=== PATIENT | male | born 1935 | race Caucasian/White ===

== ENCOUNTER 2017-10-30 16:05 | Emergency (ER) | payer MEDICARE ==
[2017-10-30 16:20] VITALS: BP 182/65
--- NOTE | 2017-10-30 16:33 | UC ---
Upper Extremity HPI - HPI Summary HPI Summary: left shoulder pain, after falling and hitting his shoulder on bed post - History of Current Complaint Chief Complaint: UCUpperExtremity Stated Complaint: SHOULDER INJURY Time Seen by Provider: 10/30/17 16:29 Hx Obtained From: Patient ?: No Onset/Duration: Sudden Onset, Lasting Days - 2 Pain Intensity: 0 Aggravating Factor(s): Movement - decrease ROM left shoulder Alleviating Factor(s): Nothing Related History: Dominant Hand Right - Allergies/Home Medications Allergies/Adverse Reactions: Allergies Allergy/AdvReac Type Severity Reaction Status Date / Time No Known Allergies Allergy Verified 10/30/17 16:20 Home Medications: Home Medications Amlodipine Besylate/Benazepril [Amlodipine Besylate/Benaz 5-40 mg-] 1 cap PO DAILY 10/30/17 [History Confirmed 10/30/17] Aspirin 81 mg CHEW TAB* [Aspirin Low Dose TAB*] 81 mg PO DAILY 10/30/17 [ History Confirmed 10/30/17] Atenolol/Chlorthalidone [Atenolol/Chlorthalidone 100-25 mg-] 1 tab PO DAILY [History Confirmed 10/30/17] Atorvastatin* [Lipitor*] 40 mg PO 1700 10/30/17 [History Confirmed 10/30/17] Glyburide/Metformin HCl [Glyburide/Metformin HCl 5-500 mg] 2 tab PO BID [History Confirmed 10/30/17] Levothyroxine TAB* [Synthroid TAB*] 125 mcg PO 0800 10/30/17 [History Confirmed 10/30/17] Losartan Potassium 100 mg PO DAILY 10/30/17 [History Confirmed 10/30/17] Omeprazole CAP* [Prilosec CAP* 20 MG] 20 mg PO DAILY 10/30/17 [History Confirmed 10/30/17] PMH/Surg Hx/FS Hx/Imm Hx Previously Healthy: No Endocrine History: Diabetes, Hypothyroidism, Dyslipidemia Cardiovascular History: Hypertension - Surgical History Surgical History: Yes Surgery Procedure, Year, and Place: CABG - Family History Known Family History: Positive: None - Social History Occupation: Retired Lives: With Family Alcohol Use: Weekly Substance Use Type: None Smoking Status (MU): Former Smoker Review of Systems Constitutional: Negative Skin: Negative Eyes: Negative ENT: Negative Respiratory: Negative Cardiovascular: Negative Gastrointestinal: Negative Genitourinary: Negative Motor: Negative Neurovascular: Negative Musculoskeletal: Decreased ROM - left shoulder Neurological: Negative Psychological: Negative Is Patient Immunocompromised?: No All Other Systems Reviewed And Are Negative: Yes Physical Exam Triage Information Reviewed: Yes Appearance: Well-Appearing, No Pain Distress, Well-Nourished Vital Signs: Initial Vital Signs Temp 97.6 F 10/30/17 16:14 Pulse 69 10/30/17 16:14 Resp 16 10/30/17 16:14 BP 182/65 10/30/17 16:14 Pulse Ox 99 10/30/17 16:14 Vital Signs Reviewed: Yes Eye Exam: Normal Eyes: Positive: Conjunctiva Clear ENT Exam: Normal ENT: Positive: Normal ENT inspection, Hearing grossly normal. Negative: Nasal congestion, Trismus, Muffled voice, Hoarse voice, Dental tenderness, Sinus tenderness Dental Exam: Normal Neck exam: Normal Neck: Positive: Supple, Nontender Respiratory Exam: Normal Respiratory: Positive: Chest non-tender, No respiratory distress, No accessory muscle use Cardiovascular Exam: Normal Cardiovascular: Positive: RRR, Pulses Normal, Brisk Capillary Refill Musculoskeletal Exam: Normal Musculoskeletal: Positive: No Edema, ROM Limited @ - left shoulder Neurological Exam: Normal Neurological: Positive: Alert, Muscle Tone Normal Psychological Exam: Normal Psychological: Positive: Normal Response To Family, Age Appropriate Behavior Skin Exam: Normal Upper Extremity Course/Dx - Course Course Of Treatment: follow with orthopedic MD, ibuprofen, follow bllod pressure with pcp - Differential Dx/Diagnosis Provider Diagnoses: calcific tendonitis left shoulder Discharge - Sign-Out/Discharge Documenting (check all that apply): Patient Departure - Discharge Plan Condition: Stable Disposition: HOME Patient Education Materials: Ibuprofen (By mouth), Calcific Tendinitis (ED), Hypertension (ED) Referrals: Manisha De Leon MD [Medical Doctor] - 3 Days Omer Ortiz MD [Primary Care Provider] - 1 Week - Billing Disposition and Condition Condition: STABLE Disposition: Home
--- NOTE | 2017-10-30 17:09 | RAD ---
Indication: Pain post fall onto LEFT shoulder. Decreased range of motion. Comparison: No relevant prior exams available on the [facility] PACS for comparison. Technique: AP and lateral views LEFT humerus. Report: Negative for humerus fracture or articular malalignment. Calcific tendinopathy of the rotator cuff at the greater tuberosity insertion. Reactive sclerosis and cystic change at the greater tuberosity consistent with chronic rotator cuff pathology. Moderate acromioclavicular and mild glenohumeral joint osteoarthritis. Unremarkable soft tissue contours. IMPRESSION: #. No fracture of the LEFT humerus evident. #. Stigmata of chronic rotator cuff pathology including calcific tendinopathy. #. Acromioclavicular and glenohumeral joint osteoarthritis.
== END 2017-10-30 17:53 | disposition home or self-care (01) ==
LOC: UCEAST 16:05
DX: M75.32 Calcific tendinitis of left shoulder (principal); M19.012 Primary osteoarthritis, left shoulder; E11.9 Type 2 diabetes mellitus without complications; Z79.84 Long term (current) use of oral hypoglycemic drugs; E03.9 Hypothyroidism, unspecified; E78.5 Hyperlipidemia, unspecified; I10 Essential (primary) hypertension; Z95.1 Presence of aortocoronary bypass graft; Z87.891 Personal history of nicotine dependence
CPT/HCPCS: 99201; G0463

== ENCOUNTER 2017-11-09 13:24 | Emergency (ER) | payer MEDICARE ==
--- OUTSIDE RECORDS SUMMARY | 2017-11-09 13:33 | XMS REPORT ---
:1935 External Reference #:[id number] Author Organization [employer] Address [address] [place] [address] [place] [address] Phone [phone] Care Team Providers Name Role Phone Omer Ortiz MD Primary Care Physician Unavailable Payers Type Date Identification Numbers Payment Provider Subscriber Medicare Primary Policy Number: [id number] Medicare [employer] Name: 1 1 [address] PayID: [id number] [place] [address] Medigap Part B Policy Number: [id number] [facility] [employer] PayID: [id number] [address] [place] [address] Problems Date Description Provider Status Onset: 07/25/2013 Coronary arteriosclerosis Johnson Toro M.D., 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 [employer] Cigarette Use Former Cigarette Smoker ETOH Use Denies alcohol use Smoking Patient is a former smoker quit smoking 45 years ago Recreational Drug Use Denies Drug Use Daily Caffeine Consumes on average 1 cup of regular coffee per day Exercise Type/Frequency Exercises regularly Allergies, Adverse Reactions, Alerts Date Description Reaction Status Severity Comments 07/25/2013 Penicillin hives active Medications Medication Date Status Form Strength Qnty SIG Indications Ordering Provider Glyburide-Metfo / Active Tablets 5-500mg 2 tab po Unknown rmin 0000 b.i.d Am/PM Atenolol-Chlort / Active Tablets 100-25mg 1 tab po Unknown halidone 0000 daily Childrens 00/ Active Chewtabs 81mg 1 tab po Unknown Aspirin Low 0000 at night Strength Vitamin B12 / Active Tablets 100mcg 90tabs Take by Unknown 0000 mouth as directed , 2 times weekly Omeprazole / Active Capsules 20mg 90caps 1 by mouth Unknown 0000 DR every day Levothyroxine / Active Tablets 125mcg 30tabs 1 by mouth Unknown Sodium 0000 every day Meclizine HCL / Active Tablets 12.5mg 30tabs as needed Unknown 0000 Atorvastatin / Active Tablets 40mg 1 by mouth Unknown Calcium 0000 every day Losartan / Active Tablets 100mg 1 by mouth Unknown Potassium 0000 every day Amlodipine / Active Capsules 5-40mg Take 1 Unknown Besylate/Benaze 0000 Capsule By pril Mouth Hydrochloride Every Day Simvastatin / Hx Tablets 80mg 1/2 by Unknown 0000 - mouth 2015 night at bedtime Diovan / Hx Tablets 320mg 30tabs 1 by mouth Unknown 0000 - every day 2014 Benazepril HCL / Hx Tablets 20mg 30tabs by mouth Unknown 0000 - every day 2014 Amlodipine / Hx Capsules 5-40mg 1 by mouth Unknown Besylate/Benaze 0000 - every day pril HCL 2015 Vital Signs Date Vital Result Comment 11/04/2017 Height 67 inches 5'7" Weight 175.00 lb BP Systolic 130 mmHg BP Diastolic 70 mmHg Respiratory Rate 20 /min Body Temperature 97.6 F Pain Level 7 BMI (Body Mass Index) 27.4 kg/m2 09/29/2016 Height 65.5 inches 5'5.50" Weight 191.00 lb with shoes Heart Rate 62 /min BP Systolic Sitting 200 mmHg Rue reg cuff BP Diastolic Sitting 84 mmHg Rue reg cuff BP Systolic Standing 194 mmHg Rue reg cuff BP Diastolic Standing 86 mmHg Rue reg cuff Respiratory Rate 17 /min BMI (Body Mass Index) 31.3 kg/m2 Ejection Fraction 59% 07/24/2014-echo 09/04/2015 Height 65.5 inches 5'5.50" Weight 191.00 lb Heart Rate 64 /min BP Systolic Sitting 164 mmHg LA large cuff BP Diastolic Sitting 82 mmHg LA large cuff BP Systolic Standing 164 mmHg LA BP Diastolic Standing 80 mmHg LA Respiratory Rate 16 /min BMI (Body Mass Index) 31.3 kg/m2 Ejection Fraction 59% 08/03/14 07/31/2014 Height 66 inches 5'6" Weight 193.00 lb w/o shoes Heart Rate 66 /min reg BP Systolic Sitting 132 mmHg LA, reg cuff BP Diastolic Sitting 70 mmHg LA, reg cuff BP Systolic Standing 138 mmHg LA BP Diastolic Standing 80 mmHg LA Respiratory Rate 18 /min BMI (Body Mass Index) 31.1 kg/m2 07/25/2013 Height 66 inches 5'6" Weight 206.00 lb with shoes Heart Rate 60 /min BP Systolic Sitting 150 mmHg Ra reg cuff BP Diastolic Sitting 90 mmHg Ra reg cuff BP Systolic Standing 158 mmHg Ra reg cuff BP Diastolic Standing 90 mmHg Ra reg cuff Respiratory Rate 16 /min BMI (Body Mass Index) 33.2 kg/m2 Results Description No Information Procedures Date CPT Code Description Status 09/29/2016 91957 EKG Tracing & Interpretation Completed 09/04/2015 13979 EKG Tracing & Interpretation Completed 07/31/2014 09051 EKG Tracing & Interpretation Completed 07/24/2014 24033 ECHO Transthoracic, Real-Time 2D With Doppler And Color Completed Flow 07/25/2013 03158 EKG Tracing & Interpretation Completed 07/20/2013 55534 ECHO Transthoracic, Real-Time 2D With Doppler And Color Completed Flow 07/01/2012 32850 EKG Tracing & Interpretation Completed 06/28/2012 56775 ECHO Transthoracic, Real-Time 2D With Doppler And Color Completed Flow Encounters Type Date Location Provider CPT E/M Dx Office Visit 09/29/2016 [facility] Johnson Toro, [address] I25.719 1:00p Rosemary Wellington, [facility] Office Visit 09/04/2015 1:30p [facility] Johnson Toro, [address]241 I25.10 Rosemary Wellington, ARSH, [place] Office Visit 07/31/2014 12:00p [facility] Johnson Toro, 26643 [phone] Rosemary Wellington, ARSH, [place] Office Visit 07/25/2013 11:30a [facility] Johnson Toro, 64951 [phone] Rosemary Wellington, [facility] 07/01/2012 11:30a [facility] Johnson Toro, 46818 414.9 Rosemary Wellington, [facility], [facility] Plan of Care Future Appointment(s):11/25/2017 3:30 pm - Rao Fernando M.D. at [facility].11/04/2017 - Rao Fernando M.D.[id number] Strain of musc/tend the rotator cuff of left shoulder, initFollow up:Follow up: 3-5 weeks OK to use the sling some especially if the shoulder is more sore OK to use ice and heat OK to use some advil. The tylenol is a little safer. Light use of the left hand and some shoulder movements are OK No casting with the left arm
[2017-11-09 13:35] VITALS: BP 185/61
--- NOTE | 2017-11-09 13:47 | UC ---
Head Injury HPI - HPI Summary HPI Summary: The patient is an 82 y/o male presenting to the [facility] for a head injury s/p a fall at 10:30. [place] and hit his head on the sidewalk. Associated: swelling and bruising to R forehead. Denies vision changes, syncope, changes in speech, nausea, light sensitivity, jaw pain , neck pain, wrist and ankle pain. Pt denies blood thinners. This is [place], documenting for attending, Dr. Noe Holder MD. - History Of Current Complaint Chief Complaint: UCHeadInjury Stated Complaint: HEAD INJURY Time Seen by Provider: 11/09/17 13:32 Hx Obtained From: Patient, Family/Lubricator Granulator Onset/Duration: Sudden Onset, Lasting Hours - 4 hours, Still Present Severity Initially: Mild Pain Intensity: 0 Pain Scale Used: 0-10 Numeric Aggravating Factor(s): Nothing Associated Signs And Symptoms: Positive: Other - Pos: swelling and bruising to forehead. Neg: vision changes, syncope, changes in speech, nausea, light sensitivity, jaw pain, neck pain, wrist and ankle pain. 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 Other Cardiovascular History: HTN - Surgical History Surgical History: Yes Surgery Procedure, Year, and Place: CABG - Family History Known Family History: Positive: Cardiac Disease - Social History Occupation: Employed Part-time Lives: With Family Alcohol Use: Weekly Substance Use Type: None Smoking Status (MU): Former Smoker Review of Systems Skin: Bruising - R forehead, Other - hematoma R forehead Eyes: Other - Neg: vision changes Gastrointestinal: Other - Neg: Nausea Musculoskeletal: Other: - Neg: Jaw, neck and ankle pain Neurological: Other - neg: syncope/LOC, speech changes All Other Systems Reviewed And Are Negative: Yes Physical Exam - Summary Physical Exam Summary: General: well-appearing, no pain distress Skin: warm, color reflects adequate perfusion, dry Head: Swelling of right lateral superior orbit,Partial thickness skin injury, No active bleeding Eyes: EOMI, MATT ENT: normal Neck: supple, nontender Respiratory: CTA, breath sounds present Cardiovascular: RRR Abdomen: soft, nontender Bowel: present Musculoskeletal: normal, strength/ROM intact Neurological: sensory/motor intact, A&O x3 Psychological: affect/mood appropriate Triage Information Reviewed: Yes Vital Signs: Initial Vital Signs Temp 98.0 F 11/09/17 13:32 Pulse 68 11/09/17 13:32 Resp 18 11/09/17 13:32 BP 185/61 11/09/17 13:32 Pulse Ox 100 11/09/17 13:32 Vital Signs Reviewed: Yes Diagnostics - Laboratory Diagnostic Studies Completed/Ordered: BRAIN CT, as read by radiologist, IMPRESSION: NO ACUTE INTRACRANIAL PATHOLOGY. DIFFUSE INVOLUTIONAL CHANGE WITH MILD CHRONIC SMALL VESSEL ISCHEMIC CHANGES. [facility] provider has reviewed this report and agrees. Head Injury Course/Dx - Course Course Of Treatment: BP noted and advised to follow up with PCP. Medications reviewed. Allergies noted. DISCUSSED RESULTS WITH THE PATIENT. F/U PMD IF NOT IMPROVED; RECHECK SOONER IF WORSE. - Differential Dx/Diagnosis Provider Diagnoses: HEAD INJURY. FACIAL ABRASION/CONTUSION Discharge - Sign-Out/Discharge Documenting (check all that apply): Patient Departure - Discharge Plan Condition: Stable Disposition: HOME Patient Education Materials: Head Injury (ED), Abrasion (ED) Referrals: Omer Ortiz MD [Primary Care Provider] - Additional Instructions: FOLLOW UP WITH YOUR DOCTOR IF NOT COMPLETELY IMPROVED. GET RECHECKED FOR ANY WORSENING OF YOUR CONDITION OR QUESTIONS OR CONCERNS. Your blood pressure was elevated during todays visit; please follow up with your primary care provider within a week for further evaluation. - Billing Disposition and Condition Condition: STABLE Disposition: Home
--- NOTE | 2017-11-09 14:25 | RAD ---
HISTORY: FELL, STRUCK RT ORBIT COMPARISONS: November 23, 2011 TECHNIQUE: Multiple contiguous axial CT scans were obtained of the head without intravenous contrast. FINDINGS: HEMORRHAGE/INFARCT: There is no hemorrhage or acute infarct. MASSES/SHIFT: There is no mass or shift. 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 This is stable. SULCI AND VENTRICLES: There is diffuse and proportional enlargement of the sulci and ventricles. CEREBRUM: There is mild patchy hypoattenuation of the periventricular matter. BRAINSTEM: There are no focal parenchymal abnormalities. CEREBELLUM: There are no focal parenchymal abnormalities. VESSELS: The vessels are grossly normal. PARANASAL SINUSES: The paranasal sinuses are clear. ORBITS: The orbits are unremarkable. BONES AND SOFT TISSUE: No bone or soft tissue abnormalities are noted. OTHER: None IMPRESSION: NO ACUTE INTRACRANIAL PATHOLOGY. DIFFUSE INVOLUTIONAL CHANGE WITH MILD CHRONIC SMALL VESSEL ISCHEMIC CHANGES.
== END 2017-11-09 14:55 | disposition home or self-care (01) ==
LOC: UCEAST 13:24
DX: S09.90XA Unspecified injury of head, initial encounter (principal); S00.81XA Abrasion of other part of head, initial encounter; W01.198A Fall on same level from slipping, tripping and stumbling with subsequent striking against other object, initial encounter; Y93.01 Activity, walking, marching and hiking; Y92.480 Sidewalk as the place of occurrence of the external cause; Z88.0 Allergy status to penicillin; I10 Essential (primary) hypertension; Z87.891 Personal history of nicotine dependence
CPT/HCPCS: 70450; 99212; G0463

== ENCOUNTER 2022-02-06 18:05 | Inpatient (IN) ==
[2022-02-06] MEDS ORDERED: Lactated Ringers 1000 ml BAG 1,000 ML IV ONE (18:17)
[2022-02-06 18:38] LABS: ABS Neutrophils 4.8 10^3/ul (1.5-7.7); Eosinophil % 0.2 %; Hematocrit 32 % (42-52); Hemoglobin 10.7 g/dL (14.0-18.0); Lymphocyte % 14.7 %; Mean Corpuscular HGB Conc 33 g/dL (31-36); Mean Corpuscular Hemoglobin 31 pg (27-31); Mean Corpuscular Volume 93 fL (80-94); Mean Platelet Volume 8.5 fL (7.4-10.4); Platelet Count 166 10^3/uL (150-450); Red Blood Count 3.48 10^6 /uL (4.18-5.48); Red Cell Distribution Width 14 % (10-15); White Blood Count 6.8 10^3/uL (3.5-10.8)
[2022-02-06 18:40] LABS: Venous Bicarbonate HCO3 24.7 mmol/L (24-28)
[2022-02-06 18:55] LABS: Urine Appearance Cloudy; Urine Bilirubin Negative (Negative); Urine Blood 2+ (Negative); Urine Color Amber; Urine Glucose Negative (Negative); Urine Ketones Negative (Negative); Urine Nitrite Negative (Negative); Urine Protein 3+(>=500 mg/dL) (Negative); Urine Specific Gravity 1.018 (1.002-1.030); Urine Urobilinogen Negative (Negative)
[2022-02-06 18:57] LABS: INR 1.06 (0.89-1.11)
[2022-02-06 18:58] LABS: Urine Bacteria 1+ (Absent); Urine Red Blood Cell 3+(>10/hpf) (Absent); Urine Squamous Epithelial Cell Present (Absent); Urine White Blood Cell Trace(0-5/hpf) (Absent)
[2022-02-06 19:05] LABS: High Sens Troponin Baseline 13 pg/mL (<20)
[2022-02-06 19:12] LABS: ALT 21 U/L (7-52); AST 40 U/L (13-39); Albumin 3.4 g/dL (3.2-5.2); Albumin/Globulin Ratio 1.2 (1-3); Alcohol, S < 13 mg/dL (<13); Alkaline Phosphatase 51 U/L (35-149); Anion Gap 9 mmol/L (2-11); Blood Urea Nitrogen 27 mg/dL (6-24); CO2 Carbon Dioxide 26 mmol/L (22-32); Calcium 7.9 mg/dL (8.6-10.3); Chloride 100 mmol/L (101-111); Globulin 2.8 g/dL (2-4); Glucose 196 mg/dL (70-100); Magnesium 1.5 mg/dL (1.9-2.7); Potassium 3.8 mmol/L (3.5-5.0); Sodium 135 mmol/L (135-145); Total Protein 6.2 g/dL (6.4-8.9); eGFR CKD-EPI 45.2 (>60)
[2022-02-06 19:22] LABS: TSH Ultra Thyroid Stim Horm 3.71 mcIU/mL (0.34-5.60)
[2022-02-06 19:29] LABS: Urine Benzodiazepine Screen None Detected (None Detect); Urine Cannabinoids Screen None Detected (None Detect); Urine Opiates Screen None Detected (None Detect)
[2022-02-06 20:46] LABS: Creatine Kinase 1728 U/L (10-223)
[2022-02-06] MEDS ORDERED: Azithromycin 500 mg/250 ml NS 500 MG/250 ML BAG IVPB ONE (21:01)
[2022-02-06] MEDS ORDERED: cefTRIAXone 1 gm/50 mL D5W 1 GM/50 ML BAG IV ONE (21:01)
[2022-02-06] MEDS ORDERED: Dexamethasone IV 4 MG/ML VIAL 1 ml VIAL IV SLOW PU ONE (21:02)
[2022-02-06 21:09] LABS: High Sensitivity Troponin 1 Hr 14 pg/mL (<20)
[2022-02-06] MEDS ORDERED: Magnesium Sulf 4 GM/100 ML IV 4,000 MG/100 ML BAG IVPB ONE (22:11)
[2022-02-06] MEDS ORDERED: Lactated Ringers 1000 ml BAG 1,000 ML IV SCH (23:45)
[2022-02-07] MEDS ORDERED: Lactated Ringers 1000 ml BAG 1,000 ML IV SCH (04:04)
[2022-02-07 05:44] LABS: Hematocrit 32 % (42-52); Hemoglobin 10.4 g/dL (14.0-18.0); Mean Corpuscular HGB Conc 33 g/dL (31-36); Mean Corpuscular Hemoglobin 31 pg (27-31); Mean Corpuscular Volume 93 fL (80-94); Mean Platelet Volume 8.4 fL (7.4-10.4); Platelet Count 157 10^3/uL (150-450); Red Blood Count 3.39 10^6 /uL (4.18-5.48); Red Cell Distribution Width 14 % (10-15); White Blood Count 4.8 10^3/uL (3.5-10.8)
[2022-02-07] MEDS: Enoxaparin 40 MG/0.4 ML SYR SUBCUT SCH (05:46)
[2022-02-07] MEDS ORDERED: Dextrose 50% Syringe 50 ml 25 GM/50 ML SYRINGE IV PUSH PRN (05:56)
[2022-02-07] MEDS ORDERED: Enoxaparin 30 MG/0.3 ML SYR SUBCUT SCH (06:00)
[2022-02-07 07:03] LABS: Albumin 3.1 g/dL (3.2-5.2); Magnesium 2.5 mg/dL (1.9-2.7)
[2022-02-07 07:09] LABS: ALT 19 U/L (7-52); AST 41 U/L (13-39); Albumin/Globulin Ratio 1.2 (1-3); Alkaline Phosphatase 52 U/L (35-149); Anion Gap 10 mmol/L (2-11); Blood Urea Nitrogen 29 mg/dL (6-24); CO2 Carbon Dioxide 23 mmol/L (22-32); Calcium 7.4 mg/dL (8.6-10.3); Chloride 103 mmol/L (101-111); Globulin 2.6 g/dL (2-4); Glucose 247 mg/dL (70-100); Sodium 136 mmol/L (135-145); Total Protein 5.7 g/dL (6.4-8.9); eGFR CKD-EPI 54.9 (>60)
[2022-02-07] MEDS ORDERED: Remdesivir 100 mg Vial 200 MG in NS 0.9% 250 ml 210 ML IV ONE (08:00)
[2022-02-07] MEDS ORDERED: AMLODIPINE BENAZEPRIL PO SCH (09:00)
[2022-02-07 09:48] LABS: Creatine Kinase 1639 U/L (10-223); Total Iron Binding Capacity 225 mcg/dL (250-450); Transferrin 161 mg/dL (203-362)
[2022-02-07 09:52] LABS: % Iron Saturation 9 % (15-55); Iron < 20 ug/dL (50-212); Unsaturated Iron Binding 205 ug/dL
[2022-02-07 10:02] LABS: Ferritin 78.8 ng/mL (24-336)
[2022-02-07 10:23] LABS: C Reactive Protein 21.77 mg/L (<8.01)
[2022-02-07] MEDS ORDERED: Haloperidol 5 mg/ml SDV IV/IM 5 MG/ML AMP IV SLOW PU ONE ×2 (11:55→12:39)
[2022-02-07] MEDS ORDERED: LORazepam 2 mg VIAL 1 ml IV PUSH ONE ×2 (13:56→18:05)
[2022-02-07] MEDS ORDERED: Lorazepam PYXIS KEY PRN (13:56)
[2022-02-07] MEDS ORDERED: LORazepam 2 mg VIAL 1 ml ONE (20:04)
[2022-02-07] MEDS ORDERED: cefTRIAXone 1 gm/50 mL D5W 1 GM/50 ML BAG IV SCH (21:00)
[2022-02-07] MEDS ORDERED: Azithromycin 500 mg/250 ml NS 500 MG/250 ML BAG IVPB SCH (22:00)
[2022-02-08] MEDS ORDERED: Lorazepam PYXIS KEY PRN ×2 (04:36→14:11)
[2022-02-08] MEDS ORDERED: LORazepam 2 mg VIAL 1 ml IV PUSH ONE ×2 (04:36→14:11)
[2022-02-08] MEDS: Enoxaparin 40 MG/0.4 ML SYR SUBCUT SCH (06:46)
[2022-02-08 08:39] LABS: ABS Lymphocytes 1.9 10^3/ul (1.0-4.8); ABS Monocytes 0.9 10^3/ul (0-0.8); ABS Neutrophils 6.6 10^3/ul (1.5-7.7); Hematocrit 35 % (42-52); Hemoglobin 11.6 g/dL (14.0-18.0); Lymphocyte % 20.1 %; Mean Corpuscular HGB Conc 34 g/dL (31-36); Mean Corpuscular Hemoglobin 31 pg (27-31); Mean Corpuscular Volume 92 fL (80-94); Mean Platelet Volume 8.5 fL (7.4-10.4); Platelet Count 183 10^3/uL (150-450); Red Blood Count 3.77 10^6 /uL (4.18-5.48); Red Cell Distribution Width 14 % (10-15); White Blood Count 9.3 10^3/uL (3.5-10.8)
[2022-02-08 08:51] LABS: INR 1.02 (0.89-1.11)
[2022-02-08 09:28] LABS: Albumin 3.4 g/dL (3.2-5.2); Albumin/Globulin Ratio 1.2 (1-3); Calcium 8.1 mg/dL (8.6-10.3); Globulin 2.8 g/dL (2-4); Magnesium 2.2 mg/dL (1.9-2.7); Potassium 3.5 mmol/L (3.5-5.0); Total Bilirubin 0.4 mg/dL (0.2-1.0); Total Protein 6.2 g/dL (6.4-8.9); eGFR CKD-EPI 41.8 (>60)
[2022-02-08] MEDS: Remdesivir 100 mg Vial 100 MG in NS 0.9% 250 ml 230 ML IV SCH (09:44)
[2022-02-08] MEDS ORDERED: LORazepam 2 mg VIAL 1 ml ONE (14:17)
[2022-02-08] MEDS ORDERED: Haloperidol 5 mg/ml SDV IV/IM 5 MG/ML AMP IM ONE (15:05)
[2022-02-08] MEDS ORDERED: Insulin GLARGINE 100 un/ml 10 ml VIAL SUBCUT SCH (21:00)
[2022-02-09] MEDS: Enoxaparin 40 MG/0.4 ML SYR SUBCUT SCH (05:01)
[2022-02-09 10:09] LABS: Hematocrit 37 % (42-52); Hemoglobin 12.3 g/dL (14.0-18.0); Mean Corpuscular HGB Conc 34 g/dL (31-36); Mean Corpuscular Hemoglobin 30 pg (27-31); Mean Corpuscular Volume 91 fL (80-94); Mean Platelet Volume 8.7 fL (7.4-10.4); Platelet Count 252 10^3/uL (150-450); Red Blood Count 4.05 10^6 /uL (4.18-5.48); Red Cell Distribution Width 14 % (10-15); White Blood Count 10.7 10^3/uL (3.5-10.8)
[2022-02-09 10:14] LABS: INR 1.07 (0.89-1.11)
[2022-02-09] MEDS: Remdesivir 100 mg Vial 100 MG in NS 0.9% 250 ml 230 ML IV SCH (10:22)
[2022-02-09 10:25] LABS: ALT 29 U/L (7-52); AST 48 U/L (13-39); Albumin 3.6 g/dL (3.2-5.2); Albumin/Globulin Ratio 1.2 (1-3); Alkaline Phosphatase 56 U/L (35-149); Anion Gap 15 mmol/L (2-11); Blood Urea Nitrogen 45 mg/dL (6-24); CO2 Carbon Dioxide 21 mmol/L (22-32); Calcium 8.4 mg/dL (8.6-10.3); Chloride 101 mmol/L (101-111); Glucose 254 mg/dL (70-100); Magnesium 1.9 mg/dL (1.9-2.7); Potassium 3.6 mmol/L (3.5-5.0); Sodium 137 mmol/L (135-145); Total Protein 6.6 g/dL (6.4-8.9); eGFR CKD-EPI 47.1 (>60)
[2022-02-09 10:40] LABS: TSH Ultra Thyroid Stim Horm 2.16 mcIU/mL (0.34-5.60)
[2022-02-09 10:51] LABS: Folate > 20.00 ng/mL (5.90-24.80)
[2022-02-09 10:52] LABS: Vitamin B12 > 1450 pg/mL (180-914)
[2022-02-09] MEDS ORDERED: Lactated Ringers 500 ml BAG 500 ML IV ONE (17:57)
[2022-02-09] MEDS: Insulin GLARGINE 100 un/ml 10 ml VIAL SUBCUT SCH (21:32)
[2022-02-10] MEDS ORDERED: Labetalol IV 5 MG/ML 20 ml VIAL IV PUSH ONE (00:15)
[2022-02-10] MEDS ORDERED: Potassium Chlor 20 meq TAB.ER PO ONE (01:00)
[2022-02-10] MEDS ORDERED: Magnesium Sulfate 2 gm BAG 2 GM/50 ML BAG IVPB ONE (01:00)
[2022-02-10] MEDS: KCL 10 MEQ/50 ML IVPREMIX 10 MEQ/50 ML BAG IV SCH ×2 (03:35→05:07)
[2022-02-10] MEDS: Enoxaparin 40 MG/0.4 ML SYR SUBCUT SCH (06:12)
[2022-02-10 07:15] LABS: Hematocrit 36 % (42-52); Hemoglobin 11.8 g/dL (14.0-18.0); Mean Corpuscular HGB Conc 33 g/dL (31-36); Mean Corpuscular Hemoglobin 30 pg (27-31); Mean Corpuscular Volume 93 fL (80-94); Mean Platelet Volume 8.6 fL (7.4-10.4); Platelet Count 241 10^3/uL (150-450); Red Blood Count 3.91 10^6 /uL (4.18-5.48); Red Cell Distribution Width 14 % (10-15); White Blood Count 7.9 10^3/uL (3.5-10.8)
[2022-02-10 07:23] LABS: INR 1.04 (0.89-1.11)
[2022-02-10] MEDS: Remdesivir 100 mg Vial 100 MG in NS 0.9% 250 ml 230 ML IV SCH (07:59)
[2022-02-10 15:43] LABS: Albumin 3.5 g/dL (3.2-5.2); CO2 Carbon Dioxide 21 mmol/L (22-32); Calcium 8.6 mg/dL (8.6-10.3); Chloride 106 mmol/L (101-111); Magnesium 2.4 mg/dL (1.9-2.7); Sodium 139 mmol/L (135-145)
[2022-02-10 15:49] LABS: ALT 28 U/L (7-52); Albumin/Globulin Ratio 1.2 (1-3); Alkaline Phosphatase 50 U/L (35-149); Blood Urea Nitrogen 37 mg/dL (6-24); Glucose 179 mg/dL (70-100); Total Protein 6.5 g/dL (6.4-8.9); eGFR CKD-EPI 53.3 (>60)
[2022-02-10 16:15] LABS: Anion Gap 12 mmol/L (2-11)
[2022-02-10 17:46] LABS: Potassium Redraw 5.1 mmol/L (3.5-5.0)
[2022-02-10] MEDS: Insulin GLARGINE 100 un/ml 10 ml VIAL SUBCUT SCH (23:16)
[2022-02-11] MEDS: Enoxaparin 40 MG/0.4 ML SYR SUBCUT SCH (05:24)
[2022-02-11 06:17] LABS: Hematocrit 37 % (42-52); Hemoglobin 12.4 g/dL (14.0-18.0); Mean Corpuscular HGB Conc 33 g/dL (31-36); Mean Corpuscular Hemoglobin 31 pg (27-31); Mean Corpuscular Volume 92 fL (80-94); Mean Platelet Volume 8.7 fL (7.4-10.4); Platelet Count 258 10^3/uL (150-450); Red Blood Count 4.02 10^6 /uL (4.18-5.48); Red Cell Distribution Width 14 % (10-15); White Blood Count 8.8 10^3/uL (3.5-10.8)
[2022-02-11 06:27] LABS: INR 1.02 (0.89-1.11)
[2022-02-11 06:55] LABS: Albumin 3.7 g/dL (3.2-5.2); Albumin/Globulin Ratio 1.2 (1-3); Calcium 8.9 mg/dL (8.6-10.3); Globulin 3.1 g/dL (2-4); Magnesium 2.3 mg/dL (1.9-2.7); Potassium 3.7 mmol/L (3.5-5.0); Total Bilirubin 0.6 mg/dL (0.2-1.0); Total Protein 6.8 g/dL (6.4-8.9); eGFR CKD-EPI 45.6 (>60)
[2022-02-11] MEDS: Remdesivir 100 mg Vial 100 MG in NS 0.9% 250 ml 230 ML IV SCH (08:51)
[2022-02-11] MEDS ORDERED: Lactated Ringers 1000 ml BAG 500 ML IV ONE (14:30)
[2022-02-12] MEDS: Insulin GLARGINE 100 un/ml 10 ml VIAL SUBCUT SCH (00:31)
[2022-02-12] MEDS: Enoxaparin 40 MG/0.4 ML SYR SUBCUT SCH (06:06)
[2022-02-12 06:54] LABS: Hematocrit 33 % (42-52); Mean Corpuscular HGB Conc 34 g/dL (31-36); Mean Corpuscular Hemoglobin 31 pg (27-31); Mean Corpuscular Volume 92 fL (80-94); Mean Platelet Volume 8.5 fL (7.4-10.4); Platelet Count 210 10^3/uL (150-450); Red Blood Count 3.56 10^6 /uL (4.18-5.48); Red Cell Distribution Width 14 % (10-15); White Blood Count 7.1 10^3/uL (3.5-10.8)
[2022-02-12 07:01] LABS: INR 1.06 (0.89-1.11)
[2022-02-12 07:33] LABS: Albumin 3.1 g/dL (3.2-5.2); Albumin/Globulin Ratio 1.2 (1-3); Calcium 8.3 mg/dL (8.6-10.3); Globulin 2.5 g/dL (2-4); Magnesium 1.9 mg/dL (1.9-2.7); Potassium 4.3 mmol/L (3.5-5.0); Total Bilirubin 0.5 mg/dL (0.2-1.0); Total Protein 5.6 g/dL (6.4-8.9); eGFR CKD-EPI 47.9 (>60)
[2022-02-12] MEDS ORDERED: Magnesium Sulfate 2 gm BAG 2 GM/50 ML BAG IVPB ONE (07:37)
[2022-02-12] MEDS ORDERED: Lactated Ringers 500 ml BAG 500 ML IV ONE (19:17)
[2022-02-12] MEDS ORDERED: Insulin GLARGINE 100 un/ml 10 ml VIAL SUBCUT SCH (21:00)
[2022-02-13 01:04] LABS: Glucose Confirmatory 419 mg/dL (70-100)
[2022-02-13] MEDS ORDERED: Dextrose 50% Syringe 50 ml 25 GM/50 ML SYRINGE IV PUSH PRN ×2 (01:12→18:26)
[2022-02-13] MEDS: Enoxaparin 40 MG/0.4 ML SYR SUBCUT SCH (05:07)
[2022-02-13 06:56] LABS: Potassium 4.3 mmol/L (3.5-5.0)
[2022-02-13 06:57] LABS: Calcium 8.4 mg/dL (8.6-10.3); eGFR CKD-EPI 42.1 (>60)
[2022-02-13 17:34] LABS: Glucose Confirmatory 402 mg/dL (70-100)
[2022-02-13] MEDS ORDERED: Insulin GLARGINE 100 un/ml 10 ml VIAL SUBCUT SCH ×2 (21:00)
[2022-02-14] MEDS: Enoxaparin 40 MG/0.4 ML SYR SUBCUT SCH (06:29)
[2022-02-14 08:33] LABS: Calcium 8.7 mg/dL (8.6-10.3); Magnesium 1.8 mg/dL (1.9-2.7); Potassium 4.8 mmol/L (3.5-5.0)
[2022-02-14] MEDS: Polyethylene Glycol 3350 17 GM PACKET PO SCH (09:57)
[2022-02-14] MEDS ORDERED: Magnesium Sulfate IV 3 GM in NS 0.9% 100 ml BAG 100 ML IVPB ONE (20:44)
[2022-02-14] MEDS ORDERED: Insulin GLARGINE 100 un/ml 10 ml VIAL SUBCUT SCH (21:00)
[2022-02-15] MEDS: Enoxaparin 40 MG/0.4 ML SYR SUBCUT SCH (05:32)
[2022-02-15 08:11] LABS: Calcium 8.6 mg/dL (8.6-10.3); Potassium 4.6 mmol/L (3.5-5.0); eGFR CKD-EPI 48.3 (>60)
[2022-02-15] MEDS: Polyethylene Glycol 3350 17 GM PACKET PO SCH (08:33)
[2022-02-15] MEDS: CMC:SitaGLIPtin 100 mg TAB (NF) PO SCH (10:47)
[2022-02-15] MEDS ORDERED: Polyethylene Glycol 3350 17 GM PACKET PO PRN (18:36)
[2022-02-15] MEDS ORDERED: Magnesium Hydroxide LIQ 30 ML UDC PO PRN (18:36)
[2022-02-15] MEDS ORDERED: Senna TAB 8.6 mg TAB PO PRN (18:36)
[2022-02-15] MEDS ORDERED: Magnesium Hydroxide LIQ 30 ML UDC PO SCH (21:00)
[2022-02-15] MEDS: Insulin GLARGINE 100 un/ml 10 ml VIAL SUBCUT SCH (21:12)
[2022-02-16] MEDS: Enoxaparin 40 MG/0.4 ML SYR SUBCUT SCH (06:21)
[2022-02-16] MEDS: Polyethylene Glycol 3350 17 GM PACKET PO SCH ×2 (08:12→18:29)
[2022-02-16] MEDS: CMC:SitaGLIPtin 100 mg TAB (NF) PO SCH (09:07)
[2022-02-16] MEDS: Senna TAB 8.6 mg TAB PO SCH ×2 (18:29→21:00)
[2022-02-16] MEDS: Insulin GLARGINE 100 un/ml 10 ml VIAL SUBCUT SCH (19:57)
[2022-02-17] MEDS: Enoxaparin 40 MG/0.4 ML SYR SUBCUT SCH (05:50)
[2022-02-17] MEDS: CMC:SitaGLIPtin 100 mg TAB (NF) PO SCH (08:43)
[2022-02-17] MEDS: Polyethylene Glycol 3350 17 GM PACKET PO SCH (08:43)
[2022-02-17 11:18] LABS: Rapid COVID-19 Molecular Detected (Undetected)
[2022-02-17 18:04] VITALS: BP 110/41
== END 2022-02-17 12:20 | DRG 177 ==
LOC: ED 18:05 → SUATTDRO 22:09 → EDHOLD 22:09 → MEDTELE 02-07 15:46
PROVIDERS: ADMIT Hospitalist; ATTEND Internal Medicine